=== PATIENT | male | born 1990 | race Caucasian/White ===

== ENCOUNTER → 2020-07-22 17:43 | Outpatient (CLI) | payer OTHER, SELFPAY ==
[2020-07-22 18:31] LABS: Basophils # 0.1 K/mm3 (0-0.2); Basophils % 0.9 % (0.1-2.0); Eosinophils # 0.3 K/mm3 (0.0-0.4); Eosinophils % 3.6 % (0.1-12.0); Hematocrit 48.9 % (42.0-52.0); Hemoglobin 16.6 g/dL (14.1-18.0); Lymphocytes # 3.2 K/mm3 (0.7-4.5); Mean Corpuscular Volume 88.2 fl (80-94); Monocytes # 0.6 K/mm3 (0.1-1.0); Neutrophils # 4.2 K/mm3 (1.8-7.8); Neutrophils % 50.4 % (37.0-80.0); Platelet Count 228 K/mm3 (142-424); Red Blood Count 5.54 M/mm3 (4.60-6.20); Red Cell Distribution Width 13.3 % (11.5-17.5); White Blood Count 8.4 K/mm3 (4.8-10.8)
[2020-07-22 18:52] LABS: Chloride 100 mmol/L (98-107); Sodium 139 mmol/L (136-145)
[2020-07-22 18:53] LABS: Potassium 4.4 mmoL/L (3.5-5.1)
[2020-07-22 18:55] LABS: Alanine Aminotransferase 35 U/L (12-78); Albumin Level 4.7 g/dl (3.5-5.0); Albumin/Globulin Ratio 1.9 (1.1-1.8); Alkaline Phosphatase 68 U/L (38-126); Anion Gap 16.4 mEq/L (5-15); Aspartate Amino Transferase 32 U/L (17-59); Bilirubin,Total 0.6 mg/dl (0.2-1.3); Blood Urea Nitrogen 15 mg/dl (9-20); Carbon Dioxide 27 mmol/L (22.0-30.0); Estimated Glomerular Filt Rate 98 ml/min (>60); GFR (African American) 118 ML/MIN (>60); Globulin 2.5 g/dL (1.3-3.2); Total Protein,Serum 7.2 g/dl (6.3-8.2)
[2020-07-22 18:56] LABS: Calcium 9.5 mg/dl (8.4-10.2); Chol/HDL Ratio 6.1 (1-3.5); Cholesterol 164 mg/dl (140-200); Glucose 111 mg/dl (74-100); HDL Cholesterol 27 mg/dl (40-60); Triglycerides 273 mg/dl (30-150); VLDL Cholesterol 55 mg/dL (0-40)
[2020-07-22 19:07] LABS: Direct LDL Cholesterol 99.65 mg/dL (100-129)
[2020-07-22 19:49] LABS: Valproic Acid, (Depakene) 42.8 ug/ml (50-100)
== END ==
PROVIDERS: Visit Provider Nurse Practitioner Psychiatric/Mental Health
DX: F25.9 Schizoaffective disorder, unspecified (principal); Z79.899 Other long term (current) drug therapy
CPT/HCPCS: 80053; 80061; 80164; 85025

== ENCOUNTER → 2021-12-01 14:16 | Outpatient (CLI) | payer OTHER, SELFPAY ==
[2021-12-01 18:33] LABS: Basophils # 0.1 K/mm3 (0-0.2); Basophils % 1.1 % (0.1-2.0); Eosinophils # 0.4 K/mm3 (0.0-0.4); Eosinophils % 3.6 % (0.1-12.0); Hemoglobin 17.5 g/dL (14.1-18.0); Lymphocytes # 3.2 K/mm3 (0.7-4.5); Lymphocytes % 31.8 % (10-50); Mean Corpuscular HGB Conc 32.9 g/dL (31.8-35.4); Mean Corpuscular Hemoglobin 29.9 pg (27.0-31.2); Mean Corpuscular Volume 90.8 fl (80-94); Mean Platelet Volume 9.5 fl (7.4-10.4); Monocytes # 0.8 K/mm3 (0.1-1.0); Monocytes % 7.6 % (1.7-9.3); Neutrophils # 5.5 K/mm3 (1.8-7.8); Neutrophils % 55.9 % (37.0-80.0); Platelet Count 258 K/mm3 (142-424); Red Blood Count 5.84 M/mm3 (4.60-6.20); White Blood Count 9.9 K/mm3 (4.8-10.8)
[2021-12-01 18:59] LABS: Alanine Aminotransferase 42 U/L (12-78); Albumin Level 4.1 g/dl (3.5-5.0); Albumin/Globulin Ratio 1.6 (1.1-1.8); Alkaline Phosphatase 95 U/L (38-126); Anion Gap 16.5 mEq/L (5-15); Aspartate Amino Transferase 37 U/L (17-59); Bilirubin,Total 0.3 mg/dl (0.2-1.3); Blood Urea Nitrogen 14 mg/dl (9-20); Calcium 8.9 mg/dl (8.4-10.2); Carbon Dioxide 30 mmol/L (22.0-30.0); Chloride 97 mmol/L (98-107); Estimated Glomerular Filt Rate 97 ml/min (>60); GFR (African American) 118 ML/MIN (>60); Globulin 2.6 g/dL (1.3-3.2); Glucose 160 mg/dl (74-100); Potassium 4.5 mmoL/L (3.5-5.1); Sodium 139 mmol/L (136-145); Total Protein,Serum 6.7 g/dl (6.3-8.2)
[2021-12-01 19:29] LABS: Thyroid Stimulating Hormone 3.92 uIU/mL (0.465-4.68)
== END ==
PROVIDERS: PCP Family Medicine; Visit Provider Family Medicine
DX: R53.83 Other fatigue (principal)
CPT/HCPCS: 80053; 84443; 85025

== ENCOUNTER → 2022-05-15 13:37 | Outpatient (CLI) | payer OTHER, SELFPAY ==
[2022-05-15 18:14] LABS: Basophils # 0.1 K/mm3 (0-0.2); Basophils % 0.8 % (0.1-2.0); Eosinophils # 0.4 K/mm3 (0.0-0.4); Eosinophils % 4.1 % (0.1-12.0); Hematocrit 52.4 % (42.0-52.0); Hemoglobin 17.6 g/dL (14.1-18.0); Lymphocytes % 38.2 % (10-50); Mean Corpuscular HGB Conc 33.6 g/dL (31.8-35.4); Mean Corpuscular Hemoglobin 30.2 pg (27.0-31.2); Mean Corpuscular Volume 90.1 fl (80-94); Mean Platelet Volume 9.2 fl (7.4-10.4); Monocytes # 0.8 K/mm3 (0.1-1.0); Monocytes % 7.5 % (1.7-9.3); Neutrophils # 5.2 K/mm3 (1.8-7.8); Neutrophils % 49.4 % (37.0-80.0); Platelet Count 224 K/mm3 (142-424); Red Blood Count 5.81 M/mm3 (4.60-6.20); White Blood Count 10.6 K/mm3 (4.8-10.8)
[2022-05-15 18:27] LABS: Alanine Aminotransferase 47 U/L (12-78); Albumin Level 4.1 g/dl (3.5-5.0); Albumin/Globulin Ratio 1.8 (1.1-1.8); Alkaline Phosphatase 91 U/L (38-126); Anion Gap 8.1 mEq/L (5-15); Aspartate Amino Transferase 39 U/L (17-59); Bilirubin,Total 0.4 mg/dl (0.2-1.3); Blood Urea Nitrogen 13 mg/dl (9-20); Calcium 8.7 mg/dl (8.4-10.2); Carbon Dioxide 28 mmol/L (22.0-30.0); Chloride 101 mmol/L (98-107); Chol/HDL Ratio 6.7 (1-3.5); Cholesterol 174 mg/dl (140-200); Estimated Glomerular Filt Rate 97 ml/min (>60); GFR (African American) 117 ML/MIN (>60); Globulin 2.3 g/dL (1.3-3.2); Glucose 169 mg/dl (74-100); HDL Cholesterol 26 mg/dl (40-60); Potassium 4.1 mmoL/L (3.5-5.1); Sodium 133 mmol/L (136-145); Total Protein,Serum 6.4 g/dl (6.3-8.2)
[2022-05-15 18:38] LABS: Direct LDL Cholesterol 90.56 mg/dL (100-129)
[2022-05-15 18:39] LABS: Triglycerides 690 mg/dl (30-150)
[2022-05-15 18:58] LABS: Thyroid Stimulating Hormone 6.24 uIU/mL (0.465-4.68)
== END ==
PROVIDERS: PCP Family Medicine; Visit Provider Family Medicine
DX: Z00.00 Encounter for general adult medical examination without abnormal findings (principal); I10 Essential (primary) hypertension; E11.9 Type 2 diabetes mellitus without complications; Z79.84 Long term (current) use of oral hypoglycemic drugs; Z79.899 Other long term (current) drug therapy
CPT/HCPCS: 80053; 80061; 83036; 84443; 85025

== ENCOUNTER 2023-04-25 18:56 | Outpatient (CLI) | payer OTHER, SELFPAY ==
[2023-04-25 18:49] LABS: Alanine Aminotransferase 83 U/L (12-78); Albumin Level 4.3 g/dl (3.5-5.0); Albumin/Globulin Ratio 1.8 (1.1-1.8); Alkaline Phosphatase 82 U/L (38-126); Aspartate Amino Transferase 71 U/L (17-59); Bilirubin,Total 0.4 mg/dl (0.2-1.3); Blood Urea Nitrogen 12 mg/dl (9-20); Calcium 9.3 mg/dl (8.4-10.2); Carbon Dioxide 29 mmol/L (22.0-30.0); Chloride 101 mmol/L (98-107); Chol/HDL Ratio 8.8 (1-3.5); Cholesterol 211 mg/dl (140-200); Estimated Glomerular Filt Rate 110 ml/min (>60); GFR (African American) 133 ML/MIN (>60); Globulin 2.4 g/dL (1.3-3.2); Glucose 245 mg/dl (74-100); HDL Cholesterol 24 mg/dl (40-60); Sodium 137 mmol/L (136-145); Total Protein,Serum 6.7 g/dl (6.3-8.2)
[2023-04-25 18:54] LABS: Triglycerides 503 mg/dl (30-150)
[2023-04-25 18:59] LABS: Direct LDL Cholesterol 100.81 mg/dL (100-129)
[2023-04-25 20:03] LABS: Thyroid Stimulating Hormone 2.68 uIU/mL (0.465-4.68)
[2023-04-25 20:31] LABS: Hemoglobin A1C 10.2 % (4.0-6.0)
== END 2023-04-25 23:59 ==
LOC: LAB.DROPOF 18:57
PROVIDERS: PCP Family Medicine; Visit Provider Family Medicine
DX: E11.9 Type 2 diabetes mellitus without complications (principal); I10 Essential (primary) hypertension; Z79.4 Long term (current) use of insulin; Z79.84 Long term (current) use of oral hypoglycemic drugs; F17.210 Nicotine dependence, cigarettes, uncomplicated
CPT/HCPCS: 80053; 80061; 83036; 84443

== ENCOUNTER 2023-08-27 11:45 | Outpatient (CLI) | payer OTHER, SELFPAY ==
[2023-08-27 19:28] LABS: Basophils # 0.1 K/mm3 (0-0.2); Eosinophils # 0.4 K/mm3 (0.0-0.4); Eosinophils % 3.4 % (0.1-12.0); Hematocrit 50.6 % (42.0-52.0); Hemoglobin 17.2 g/dL (14.1-18.0); Lymphocytes # 4.1 K/mm3 (0.7-4.5); Lymphocytes % 39.8 % (10-50); Mean Corpuscular Hemoglobin 30.7 pg (27.0-31.2); Mean Corpuscular Volume 90.2 fl (80-94); Mean Platelet Volume 9.5 fl (7.4-10.4); Monocytes # 0.6 K/mm3 (0.1-1.0); Monocytes % 5.9 % (1.7-9.3); Neutrophils # 5.1 K/mm3 (1.8-7.8); Neutrophils % 49.8 % (37.0-80.0); Platelet Count 206 K/mm3 (142-424); Red Blood Count 5.61 M/mm3 (4.60-6.20); Red Cell Distribution Width 13.4 % (11.5-17.5); White Blood Count 10.3 K/mm3 (4.8-10.8)
[2023-08-27 19:39] LABS: Alanine Aminotransferase 99 U/L (12-78); Albumin/Globulin Ratio 1.5 (1.1-1.8); Alkaline Phosphatase 83 U/L (38-126); Anion Gap 11.9 mEq/L (5-15); Aspartate Amino Transferase 82 U/L (17-59); Bilirubin,Total 0.6 mg/dl (0.2-1.3); Blood Urea Nitrogen 13 mg/dl (9-20); Calcium 9.7 mg/dl (8.4-10.2); Carbon Dioxide 29 mmol/L (22.0-30.0); Chloride 102 mmol/L (98-107); Chol/HDL Ratio 6.7 (1-3.5); Cholesterol 215 mg/dl (140-200); Estimated Glomerular Filt Rate 96 ml/min (>60); GFR (African American) 116 ML/MIN (>60); Globulin 2.7 g/dL (1.3-3.2); Glucose 181 mg/dl (74-100); HDL Cholesterol 32 mg/dl (40-60); Potassium 3.9 mmoL/L (3.5-5.1); Sodium 139 mmol/L (136-145); Total Protein,Serum 6.7 g/dl (6.3-8.2); Triglycerides 374 mg/dl (30-150); VLDL Cholesterol 75 mg/dL (0-40)
[2023-08-27 20:01] LABS: Direct LDL Cholesterol 122.39 mg/dL (100-129)
[2023-08-27 20:11] LABS: Hemoglobin A1C 10.2 % (4.0-6.0)
== END 2023-08-27 23:59 | disposition home or self-care (01) ==
LOC: LAB.DROPOF 08-28 11:46
PROVIDERS: PCP Family Medicine; Visit Provider Family Medicine
DX: I10 Essential (primary) hypertension (principal); E11.9 Type 2 diabetes mellitus without complications; Z72.0 Tobacco use; Z79.84 Long term (current) use of oral hypoglycemic drugs
CPT/HCPCS: 80053; 80061; 83036; 85025

== ENCOUNTER 2023-11-26 17:19 | Emergency (ER) | payer OTHER, SELFPAY ==
[2023-11-26 17:21] VITALS: BP 149/84; PULSE 94; RESP 18; TEMP 36.5; O2SAT 92; BMI 36.1
--- NOTE | 2023-11-26 18:37 | ED_ITS ---
Discharge Plan Disposition Patient Disposition: Home, Self-Care Condition: Good Prescriptions Prescriptions: New cephalexin 500 mg capsule 500 mg PO BID 7 Days Qty: 14 0RF No Action divalproex [Depakote] 250 mg tablet,delayed release (DR/EC) 500 mg PO HS Qty: 90 3RF sildenafil [Viagra] 100 mg tablet 100 mg PO DAILY PRN (Reason: sexual activity) Qty: 7 10RF Rx Instructions: administer 30 minutes to 4 hours before activity hydrocodone-acetaminophen 5-325 mg tablet 1 tab PO DAILY PRN (Reason: pain) Qty: 10 0RF Trelegy Ellipta 200-62.5-25 mcg blister with device 1 inh inhalation DAILY Qty: 60 12RF albuterol sulfate 2.5 mg /3 mL (0.083 %) solution for nebulization 2.5 mg inhalation Q6H Qty: 180 12RF albuterol sulfate 90 mcg/actuation HFA aerosol inhaler 2 puff inhalation QID PRN (Reason: shortness of breath or wheezing) Qty: 8.5 12RF metformin 500 mg tablet 500 mg PO BID Qty: 180 3RF levothyroxine [Synthroid] 50 mcg tablet 50 mcg PO DAILY Qty: 90 3RF quetiapine [Seroquel] 300 mg tablet 600 mg PO HS Qty: 90 3RF Referrals Follow up/Referrals: José Miguel Butcher MD [Primary Care Provider] - See instructions Activity Restrictions/Add. Instructions Additional Instructions/Restrictions: Please keep area open to air is much as possible. If you develop any redness increasing pain swelling or drainage return to your PCP or ER. I sent a prescription for Keflex into your pharmacy. Please take till it is all gone. Clinical Impressions Clinical Impression: Superficial abrasion Instructions Patient Instructions: DI for Laceration Repair Print Language Print Language: Irish Discharge ED Provider: Randell Uriostegui General Adult HPI <LEÓN Moore - Last Filed: 11/26/23 22:01> General Chief complaint: Wound/Laceration Stated complaint: AO 11/25/23 , lac to big toe on left foot Time Seen by Provider: 11/26/23 18:34 History of Present Illness HPI narrative: Patient presents for evaluation of a superficial laceration to the dorsum of his left toe. Patient states that his toilet shattered this morning and a piece of the porcelain cut his toe. Patient reports he has had difficulty getting it to stop bleeding. He denies any other injury. Related Data Previous Rx's ?Medication ?Instructions ?Recorded divalproex 250 mg tablet,delayed 500 mg (2 x 250 mg) PO HS adhd 05/15/22 release (Depakote) aggression #90 tabs levothyroxine 50 mcg tablet 50 mcg PO DAILY #90 tabs 05/29/22 (Synthroid) quetiapine 300 mg tablet (Seroquel) 600 mg (2 x 300 mg) PO HS sleep 11/07/22 #90 tabs hydrocodone 5 mg-acetaminophen 325 1 tab PO DAILY PRN pain #10 tabs 04/25/23 mg tablet sildenafil 100 mg tablet (Viagra) 100 mg PO DAILY PRN sexual 04/25/23 activity #7 tabs albuterol sulfate 2.5 mg/3 mL 2.5 mg (3 mL) inhalation Q6H #180 09/26/23 (0.083 %) solution for nebulization mL albuterol sulfate 90 mcg/actuation 2 puff inhalation QID PRN 09/26/23 aerosol inhaler shortness of breath or wheezing #8.5 grams fluticasone fur. 200 mcg-umeclid 1 inh inhalation DAILY #60 ea 09/26/23 62.5 mcg-vilant 25 mcg inhalat.powder (Trelegy Ellipta) metformin 500 mg tablet 500 mg PO BID #180 tabs 09/26/23 cephalexin 500 mg capsule 500 mg PO BID 7 days #14 caps 11/26/23 Allergies Allergy/AdvReac Type Severity Reaction Status Date / Time aspirin [ASPIRIN] Allergy Mild Verified 09/26/23 15:24 Sulfa (Sulfonamide Allergy Mild Verified 09/26/23 15:24 Antibiotics) [SULFA (SULFONAMIDE ANTIBIOTICS)] FORMERLY [facility], [facility]–1983 <LEÓN Moore - Last Filed: 11/26/23 22:01> FORMERLY [facility], [facility]1983 Disclaimer: The information contained in this section may have been updated after the patient was seen, as this information can be updated by other users. Medical History Diabetes mellitus Schizophrenia Seizures Hypertension Asthma Social History Smoking Status: Current every day smoker tobacco type: cigarettes packs per day: 1 alcohol intake: current alcohol intake frequency: a few times a month substance use type: denies use current occupational status: disabled Travel in the last 8 weeks: Inside the [place] Other Medical History Have you received the Pneumonia Vaccine: No <LEÓN Moore - Last Filed: 11/26/23 22:01> ROS Obtained: Yes Systems reviewed as appropriate & no additional complaints except as documented Physical Exam <LEÓN Moore - Last Filed: 11/26/23 22:01> General General appearance: alert and in no apparent distress Respiratory Respiratory exam: Present normal lung sounds bilaterally Cardiovascular Cardiovascular exam: Present regular rate Neurological Exam Neurological exam: Present alert and oriented X3 Medical Decision Making <LEÓN Moore - Last Filed: 11/26/23 22:01> Medical Records Screening: Per USPSTF and CDC recommendations, given the prevalence of disease in our region, it is our hospital?s policy to screen for HIV and viral Hepatitis for all patients aged 18 and over and those with ongoing risk factors. Reid Inquiry Pt receiving controlled substance: No Vital Signs: 11/26/23 17:21 11/26/23 18:48 11/26/23 19:16 Temperature 97.7 F 97.7 F Temperature Source Oral Oral Pulse Rate 80 87 Pulse Rate [Left Radial] 94 H Respiratory Rate 18 20 Blood Pressure 152/88 H 150/88 H Blood Pressure [Left Arm] 149/84 H Blood Pressure Mean [Left Arm] 105 Blood Pressure Source Automatic Cuff 02 Sat by Pulse Oximetry 92 L 90 L Oxygen Delivery Method Room Air Room Air Room Air Orders (Tests/Meds): ED MEDICATIONS Discontinued Medications Generic Name Dose Route Start Last Admin Trade Name Freq PRN Reason Stop Dose Admin Cephalexin HCl 500 mg 11/26/23 18:55 11/26/23 19:00 Cephalexin 500mg Capsule PO 11/26/23 18:56 500 mg ONCE ONE Administration Silver Nitrate 1 each 11/26/23 18:49 11/26/23 18:54 Silver Nitrate Applicator TP 11/26/23 18:50 1 each ONCE ONE Administration Tetanus/Reduced Diphtheria/Acell Pertussis 0.5 ml 11/26/23 19:02 11/26/23 19:08 Tet/Diphth/Pert-Adult 0.5ml Syringe IM 11/26/23 19:03 0.5 ml .ONCE ONE Administration Medical Decision Narrative: In summary patient is a 3-year-old male who presents to the emergency department for evaluation of superficial abrasion to the dorsum of his left toe. Patient is hemodynamically stable upon arrival, afebrile. Physical exam is remarkable for approximately 3 mm scalloped skin abrasion to the dorsum of his left toe there is some capillary bleeding after taking down the dressing. He is neurovascular intact full range of motion. It did not extend deeper into the soft tissue. Differential diagnosis were considered such as joint involvement or tender laceration however there are no red flags as patient has full range of motion and is neurovascularly intact for deeper penetration thus superficial laceration. Wound was cleaned and then utilizing silver nitrate stick hemostasis was obtained. Patient is appropriate for discharge with prescription for Keflex with first dose given here. <Randell Uriostegui MD - Last Filed: 11/26/23 22:21> Vital Signs: 11/26/23 17:21 11/26/23 18:48 11/26/23 19:16 Temperature 97.7 F 97.7 F Temperature Source Oral Oral Pulse Rate 80 87 Pulse Rate [Left Radial] 94 H Respiratory Rate 18 20 Blood Pressure 152/88 H 150/88 H Blood Pressure [Left Arm] 149/84 H Blood Pressure Mean [Left Arm] 105 Blood Pressure Source Automatic Cuff 02 Sat by Pulse Oximetry 92 L 90 L Oxygen Delivery Method Room Air Room Air Room Air Orders (Tests/Meds): ED MEDICATIONS Discontinued Medications Generic Name Dose Route Start Last Admin Trade Name Isaiq PRN Reason Stop Dose Admin Cephalexin HCl 500 mg 11/26/23 18:55 11/26/23 19:00 Cephalexin 500mg Capsule PO 11/26/23 18:56 500 mg ONCE ONE Administration Silver Nitrate 1 each 11/26/23 18:49 11/26/23 18:54 Silver Nitrate Applicator TP 11/26/23 18:50 1 each ONCE ONE Administration Tetanus/Reduced Diphtheria/Acell Pertussis 0.5 ml 11/26/23 19:02 11/26/23 19:08 Tet/Diphth/Pert-Adult 0.5ml Syringe IM 11/26/23 19:03 0.5 ml .ONCE ONE Administration Medical Decision Narrative: In summary patient is a 3-year-old male who presents to the emergency department for evaluation of superficial abrasion to the dorsum of his left toe. Patient is hemodynamically stable upon arrival, afebrile. Physical exam is remarkable for approximately 3 mm scalloped skin abrasion to the dorsum of his left toe there is some capillary bleeding after taking down the dressing. He is neurovascular intact full range of motion. It did not extend deeper into the soft tissue. Differential diagnosis were considered such as joint involvement or tender laceration however there are no red flags as patient has full range of motion and is neurovascularly intact for deeper penetration thus superficial laceration. Wound was cleaned and then utilizing silver nitrate stick hemostasis was obtained. Patient is appropriate for discharge with prescription for Keflex with first dose given here. I was consulted by the HARRIS, and we discussed the complexity of the problems being addressed. I approved the treatment and management plan for this patient's care in the Emergency Department, thus performing a substantive portion of the medical decision making. Randell Uriostegui MD Critical Care <LEÓN Moore - Last Filed: 11/26/23 22:01> Critical Care Time Critical Care Time: No
[2023-11-26 18:48] VITALS: BP 152/88; PULSE 80; O2SAT 90
--- NOTE | 2023-11-26 18:49 | PC.NURSE ---
erwin camargo at chair side
[2023-11-26] MEDS: SILVER NITRATE APPLICATOR 1 EACH TP (18:54)
[2023-11-26] MEDS: cephALEXin 500MG CAPSULE 500 MG PO (19:00)
[2023-11-26] MEDS: TET/DIPHTH/PERT-ADULT 0.5ML SYRINGE 0.5 ML IM (19:08)
[2023-11-26 19:16] VITALS: BP 150/88; PULSE 87; RESP 20; TEMP 36.5; O2SAT 95
== END 2023-11-26 19:20 | disposition home or self-care (01) ==
PROVIDERS: Emergency Provider Emergency Medicine; PCP Family Medicine
DX: T14.8XXA Other injury of unspecified body region, initial encounter (principal); M79.675 Pain in left toe(s); Z23 Encounter for immunization; W45.8XXA Other foreign body or object entering through skin, initial encounter; Y93.89 Activity, other specified; Y92.9 Unspecified place or not applicable
CPT/HCPCS: 90471; 90715; 99282

== ENCOUNTER 2023-12-13 08:01 | Outpatient (CLI) | payer OTHER, SELFPAY ==
[2023-12-13] MEDS: ALBUTEROL 0.083% 2.5 MG/3 ML NEB IH (09:04)
== END 2023-12-13 23:59 | disposition home or self-care (01) ==
LOC: RT 08:02
PROVIDERS: PCP Family Medicine; Visit Provider Family Medicine
DX: J45.20 Mild intermittent asthma, uncomplicated (principal)
CPT/HCPCS: 94060; 94726; 94729; J7613